=== PATIENT | male | born 1950 | race Caucasian/White ===

== ENCOUNTER 2017-09-01 03:05 | Emergency (ER) | payer BC, OTHER ==
[~2017-09-01] VITALS: Ht 180.3 cm; Wt 78.5 kg
--- NOTE | 2017-09-01 03:20 | NUR ---
67 yo male bb self, patient is oriented x 3, c/o sob. patient denies pain at this time, ambulated to er bed, skin warm and dry, resp even and unlabored. patient gowned,placed on cardiac exercise specialist. awaiting orders from provider, will continue to monitor
--- NOTE | 2017-09-01 03:40 | NUR ---
18g right ac iv started, blood sample obtained and sent to lab
[2017-09-01 03:47] LABS: BASOPHILS % (AUTO) 0.6 % (0.0-2.0); EOSINOPHILS % (AUTO) 8.1 % (0.0-6.0); HEMATOCRIT 35 % (39-51); HEMOGLOBIN 12.2 g/dL (13.5-17.5); LYMPHOCYTES # (AUTO) 1.7 /CMM (0.8-4.8); LYMPHOCYTES % (AUTO) 36.3 % (20.0-44.0); MEAN CORPUSCULAR HGB CONC 35 g/dl (31.0-36.0); MEAN CORPUSCULAR VOLUME 93 fL (80-96); MONOCYTES # (AUTO) 0.5 /CMM (0.1-1.30); MONOCYTES % (AUTO) 11.1 % (2.0-12.0); NEUTROPHILS % (AUTO) 43.9 % (43.0-81.0); PLATELET COUNT (AUTO) 238 /CMM (150-450); RDW COEFFICIENT OF VARIATION 12.4 (11.5-15.0); RED BLOOD CELL COUNT(AUTO) 3.82 MIL/uL (4.5-6.0); WHITE BLOOD COUNT (AUTO) 4.6 K/uL (4.3-11.0)
[2017-09-01 04:06] LABS: CALCIUM, SERUM 9.1 mg/dL (8.5-10.1); CREATININE 0.9 mg/dL (0.6-1.3)
[2017-09-01 04:08] LABS: INR 0.95 (0.87-1.13)
[2017-09-01 04:14] LABS: TROPONIN I 0.04 ng/mL (0.00-0.056)
[2017-09-01] MEDS ORDERED: IOHEXOL-350 100 ML VIAL IV ONE (04:38)
[2017-09-01] MEDS ORDERED: CT SWABBABLE VALVE TRANS SET 1 EA INFUS.SET MC ONE (04:38)
[2017-09-01] MEDS ORDERED: IV NS 0.9% 250 ML IV ONE (04:39)
[2017-09-01 05:18] VITALS: BP 124/74
--- NOTE | 2017-09-01 05:20 | NUR ---
Patient discharged to home in stable condition. Written and verbal after care instructions given. Patient verbalizes understanding of instruction.IV removed. Catheter intact and site benign. Pressure and 4x4 applied to site. No bleeding noted. PT ambulatory with a steady gait VITAL SIGNS WITHIN NORMAL LIMITS.
== END 2017-09-01 05:20 | disposition home or self-care (01) ==
LOC: ER 03:08
DX: R06.02 Shortness of breath (principal); Z60.2 Problems related to living alone
CPT/HCPCS: 36415; 71275; 80048; 84484; 85025; 85730; 93005; 99285; A4606; J7050; Q9967; Z7610